=== PATIENT | male | born 1985 ===

== ENCOUNTER 2017-04-09 12:40 | Emergency (ER) | payer SELFPAY ==
[2017-04-09 13:09] VITALS: BP 132/69
[2017-04-09] MEDS ORDERED: MOTRIN PO ONE (13:41)
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
[2017-04-09 13:57] LABS: Anion Gap 20 mmol/L; Blood Urea Nitrogen 8 mg/dL (9-20); Calcium 9.2 mg/dL (8.4-10.2); Carbon Dioxide 23 mmol/L (22-30); Chloride 99.9 mmol/L (98-107); Glucose 90 mg/dL (75-100); Sodium 139 mmol/L (137-145)
[2017-04-09 14:04] LABS: Basophils % (Auto) 0.7 % (0.0-1.8); Eosinophils % (Auto) 0.2 % (0.0-4.3); Hematocrit 43.8 % (35.5-45.6); Mean Corpuscular HGB Conc 34 % (32-34); Mean Corpuscular Hemoglobin 31 pg (28-32); Mean Corpuscular Volume 90 fl (84-94); Platelet Count 220 K/mm3 (140-440); Red Blood Count 4.86 M/mm3 (3.65-5.03); Red Cell Distribution Width 14.4 % (13.2-15.2); White Blood Count 5.4 K/mm3 (4.5-11.0)
== END 2017-04-09 13:52 | disposition home or self-care (01) ==
LOC: ED 12:40
DX: F20.9 Schizophrenia, unspecified (principal); F17.210 Nicotine dependence, cigarettes, uncomplicated
CPT/HCPCS: 36415; 80048; 85025; 99283; G0480; 80320